=== PATIENT | female | born 1980 | race African-American/Black ===

== ENCOUNTER 2019-05-20 14:50 | Emergency (ER) | payer OTHER ==
[~2019-05-20] VITALS: Ht 154.9 cm; Wt 96.2 kg
[2019-05-20 14:53] VITALS: BP 124/76
[2019-05-20] MEDS ORDERED: ALBUTEROL 0.083% 2.5 MG/3 ML NEBU INH ONE (15:10)
[2019-05-20] MEDS ORDERED: predniSONE 20 MG TAB PO ONE (15:10)
[2019-05-20] MEDS ORDERED: IPRATROPIUM 0.02% 0.5 MG/2.5 ML NEBU INH ONE (15:10)
[2019-05-20 16:35] VITALS: BP 131/78
== END 2019-05-20 14:58 | disposition home or self-care (01) ==
LOC: MED 14:50
DX: J18.9 Pneumonia, unspecified organism (principal); J45.909 Unspecified asthma, uncomplicated
CPT/HCPCS: 71046; 94640; 99283; J7512; J7613; J7644

== ENCOUNTER 2019-10-18 06:02 | Emergency (ER) | payer OTHER ==
[~2019-10-18] VITALS: Ht 154.9 cm; Wt 98.0 kg
[2019-10-18 06:13] VITALS: BP 125/86
[2019-10-18] MEDS ORDERED: VANCOMYCIN 1,000 MG in DEXTROSE 5% 250 ML IV ONE (06:30)
[2019-10-18] MEDS ORDERED: KETOROLAC 30 MG/ML VIAL IVP ONE (06:30)
[2019-10-18] MEDS ORDERED: NACL 0.9% 1,000 ML IV ONE (06:30)
[2019-10-18] MEDS ORDERED: VANCOMYCIN 1,000 MG VIAL ONE (06:39)
[2019-10-18] MEDS ORDERED: KETOROLAC 60 MG/2 ML VIAL IM ONE (06:55)
[2019-10-18 07:45] VITALS: BP 125/86
== END 2019-10-18 07:33 | disposition home or self-care (01) ==
LOC: MED 06:02
DX: S93.601A Unspecified sprain of right foot, initial encounter (principal); J45.909 Unspecified asthma, uncomplicated; X58.XXXA Exposure to other specified factors, initial encounter; Y93.89 Activity, other specified; Y92.89 Other specified places as the place of occurrence of the external cause; Y99.8 Other external cause status
CPT/HCPCS: 96372; 99283; J1885; J3370

== ENCOUNTER 2019-12-10 22:48 | Emergency (ER) | payer OTHER ==
[~2019-12-10] VITALS: Ht 154.9 cm; Wt 98.4 kg
[2019-12-10 22:49] VITALS: BP 124/91
--- NOTE | 2019-12-10 22:55 | NUR ---
PT AMBULATED TO BED #11. NEGATIVE COVID-19 SCREENING. PT WEARING A MASK
--- NOTE | 2019-12-10 23:11 | NUR ---
Dr. Kilgoer examining patient.
[2019-12-10] MEDS ORDERED: KETOROLAC 30 MG/ML VIAL IM ONE (23:20)
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
--- NOTE | 2019-12-10 23:26 | NUR ---
PT TAKEN TO XRAY
[2019-12-11 00:15] VITALS: BP 124/91
--- NOTE | 2019-12-11 00:15 | NUR ---
Patient discharged with v/s stable. Written and verbal after care instructions given and explained. Patient alert, oriented and verbalized understanding of instructions. Ambulatory with steady gait. All questions addressed prior to discharge. ID band removed. Patient advised to follow up with PMD. Rx of ROBAXIN, MOTRIN, TRAMADOL given. Patient educated on indication of medication including possible reaction and side effects. Opportunity to ask questions provided and answered.
== END 2019-12-11 00:15 | disposition home or self-care (01) ==
LOC: MED 22:48
DX: M54.42 Lumbago with sciatica, left side (principal); J45.909 Unspecified asthma, uncomplicated; F41.9 Anxiety disorder, unspecified
CPT/HCPCS: 72100; 81025; 96372; 99283; J1885

== ENCOUNTER 2020-02-01 19:25 | Emergency (ER) | payer OTHER ==
[~2020-02-01] VITALS: Ht 154.9 cm; Wt 98.9 kg
[2020-02-01 19:59] VITALS: BP 137/92
--- NOTE | 2020-02-01 20:04 | NUR ---
PT BACK TO LOBBY.
[2020-02-01 21:44] VITALS: BP 137/92
--- NOTE | 2020-02-01 21:45 | NUR ---
Patient discharged with v/s stable. Written and verbal after care instructions given and explained. Patient alert, oriented and verbalized understanding of instructions. Ambulatory with steady gait. All questions addressed prior to discharge. ID band removed. Patient advised to follow up with PMD. Rx of NORCO AND NAPROSYN given. Patient educated on indication of medication including possible reaction and side effects. Opportunity to ask questions provided and answered.
== END 2020-02-01 21:45 | disposition home or self-care (01) ==
LOC: MED 19:25
DX: S16.1XXA Strain of muscle, fascia and tendon at neck level, initial encounter (principal); J45.909 Unspecified asthma, uncomplicated; X58.XXXA Exposure to other specified factors, initial encounter; Y93.89 Activity, other specified; Y92.89 Other specified places as the place of occurrence of the external cause; Y99.8 Other external cause status
CPT/HCPCS: 99283